=== PATIENT | female | born 2005 | race Caucasian/White ===

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

== ENCOUNTER 2023-11-14 18:11 | Emergency (ER) | payer BC ==
[2023-11-14 20:18] LABS: BASOPHILS % (AUTO) 0.4 %; EOSINOPHILS # (AUTO) 0.1 10^3/uL (0.0-0.7); EOSINOPHILS % (AUTO) 0.9 %; HCT - HEMATOCRIT 37.9 % (37.0-47.0); HGB - HEMOGLOBIN 12.8 g/dL (12.0-16.0); LYMPHOCYTES # (AUTO) 3.3 10^3/uL (1.5-3.5); LYMPHOCYTES % (AUTO) 31.3 %; MEAN CORPUSCULAR HEMOGLOBIN 29.8 pg (27.0-31.0); MEAN CORPUSCULAR HGB CONC 33.8 g/dL (32.0-36.0); MEAN CORPUSCULAR VOLUME 88.1 fL (81.0-99.0); MEAN PLATELET VOLUME 10.2 fL (7.9-10.8); MONOCYTES # (AUTO) 0.6 10^3/uL (0.0-1.0); MONOCYTES % (AUTO) 5.2 %; NEUTROPHILS # (AUTO) 6.5 10^3/uL (1.5-6.6); PLT - PLATELET COUNT 265 10^3/uL (130-450); RED CELL DISTRIBUTION WIDTH 12.6 % (12.0-15.0); WHITE BLOOD COUNT 10.5 x10^3/uL (4.8-10.8)
--- NOTE | 2023-11-14 20:20 | ED Physician Documentation ---
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 Reports increasing pain as well as numbness in the right leg which is atypical for her and is a new symptom. Has been followed by orthopedics and vascular surgery. Denies fever, chills, trauma Review of Systems Constitutional: denies: Fever Eyes: denies: Loss of vision Ears: denies: Loss of hearing Nose: denies: Rhinorrhea / runny nose Throat: denies: Dental pain / toothache Cardiac: denies: Chest pain / pressure Respiratory: denies: Dyspnea GI: denies: Abdominal Pain : denies: Dysuria Skin: denies: Rash Musculoskeletal: denies: Neck pain Neurologic: denies: Generalized weakness Psychiatric: denies: Depressed PD PAST MEDICAL HISTORY - Past Medical History Cardiovascular: None Respiratory: None Endocrine/Autoimmune: Type 1 diabetes GI: None AVIATION [place]S MATE: None : None HEENT: None Psych: None Musculoskeletal: Other Derm: None - Past Surgical History Past Surgical History: Yes - Present Medications Home Medications: Ambulatory Orders Medication Instructions Recorded Confirmed HYDROcod/ACETAM 5/325 [[place] 5/325] 1 tab PO Q6H #15 tab 11/14/23 Ketorolac [Toradol] 10 mg PO Q6H #30 tablet 11/14/23 - Allergies Allergies/Adverse Reactions: Allergies Allergy/AdvReac Type Severity Reaction Status Date / Time amoxicillin Allergy Hives Verified 11/14/23 18:27 clavulanic acid Allergy Edema Verified 11/14/23 18:27 [From Augmentin] - Social History Does the pt smoke?: No Smoking Status: Never smoker Does the pt drink ETOH?: No Does the pt have substance abuse?: No - Immunizations Immunizations are current?: Yes - POLST Patient has POLST: No PD ED PE NORMAL - General General: Alert and oriented X 3 - HEENT HEENT: Atraumatic - Neck Neck: Supple, no meningeal sign - Cardiac Cardiac: RRR - Respiratory Respiratory: No respiratory distress - Abdomen Abdomen: Normal bowel sounds - Female Female : Deferred - Rectal Rectal: Deferred - Derm Derm: Normal color - Extremities Extremities: Other (Lower extremities with significant tenderness to palpation that is outside of proportion for exam. Lower extremities otherwise appear well perfused. Previous fasciotomy scars are identified.) Results - Vitals Vitals: Vital Signs - 24 hr 11/14/23 11/14/23 18:22 20:43 Temperature 36.5 C Heart Rate 85 63 Respiratory 16 14 Rate Blood Pressure 119/61 114/65 O2 Saturation 99 97 Oxygen O2 Source Room air - Labs Labs: Laboratory Tests 11/14/23 11/14/23 11/14/23 20:13 20:13 20:13 WBC 10.5 RBC 4.30 Hgb 12.8 Hct 37.9 MCV 88.1 MCH 29.8 MCHC 33.8 RDW 12.6 Plt Count 265 MPV 10.2 Neut # (Auto) 6.5 Lymph # (Auto) 3.3 [place] # (Auto) 0.6 Eos # (Auto) 0.1 Baso # (Auto) 0.0 Absolute Nucleated RBC 0.00 Nucleated RBC % 0.0 PT 13.7 H INR 1.3 H Sodium 138 Potassium 3.7 Chloride 105 Carbon Dioxide 27 Anion Gap 6.0 BUN 16 Creatinine 0.9 Estimated GFR (MDRD) 80 L Glucose 98 Lactic Acid Calcium 9.1 Total Bilirubin 0.4 AST 10 ALT 10 Alkaline Phosphatase 49 Total Creatine Kinase 64 C-Reactive Protein < 0.5 Total Protein 6.6 Albumin 4.1 Globulin 2.5 Albumin/Globulin Ratio 1.6 Lipase 16 11/14/23 20:13 WBC RBC Hgb Hct MCV MCH MCHC RDW Plt Count MPV Neut # (Auto) Lymph # (Auto) [place] # (Auto) Eos # (Auto) Baso # (Auto) Absolute Nucleated RBC Nucleated RBC % PT INR Sodium Potassium Chloride Carbon Dioxide Anion Gap BUN Creatinine Estimated GFR (MDRD) Glucose Lactic Acid < 0.2 L Calcium Total Bilirubin AST ALT Alkaline Phosphatase Total Creatine Kinase C-Reactive Protein Total Protein Albumin Globulin Albumin/Globulin Ratio Lipase PD Medical Decision Making - ED course Complexity details: reviewed results, re-evaluated patient, considered differential, d/w patient, d/w family, d/w advisor consultant ED course: 18-year-old female presents to the emergency department with bilateral lower extremity pain. 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 Afebrile, he medically stable on arrival to the emergency department. Tenderness to the lower extremity with passive stretch but easily palpable pulses with normal capillary refill. She did report some paresthesia to the right lower extremity but stated that this had resolved at time of evaluation in the emergency department. Was offered medication for pain control but declined any narcotic pain medicine and instead received Toradol. Labs obtained including CK were all within normal limits are generally nonactionable. [place] for evaluation of compartment pressures is not available at this facility at this time. Discussed with orthopedic surgery at the [facility] who upon review of the case believe that this is an exacerbation of her more chronic problem. They would like me to discharge her for follow-up both with their service tomorrow as well with vascular service for whom she is following. Patient and patient's mother is present at bedside is agreeable for this plan at this time. Explicit return precautions given for any new or worsening symptoms. Departure - Departure Disposition: 01 Home, Self Care Clinical Impression: Leg pain Qualifiers: Laterality: bilateral Qualified Code(s): M79.604 - Pain in right leg; M79.605 - Pain in left leg Prescriptions: HYDROcod/ACET 5/325 Prepack 4 [[place] 5/325 Prepack 4] 1 bottle PO Q6HR #1 each HYDROcod/ACETAM 5/325 [[place] 5/325] 1 tab PO Q6H #15 tab Ketorolac [Toradol] 10 mg PO Q6H #30 tablet Comments: Thank you for allowing us to care for you today at [facility]. Your lab work here in the emergency department today is very reassuring. I discussed your care directly with the orthopedic service at the [facility]. Their recommendation is that you follow-up with them in their clinic at the earliest opportunity as well as continue to follow with vascular surgery. Importance of medication to take for pain control. Please be aware that 1 of these medicines, hydrocodone-acetaminophen is both sedating and habit- forming and should not be used if you are operating a motor vehicle, using of the machinery or you are the sole glass cutting machine feeder of young children. Please do follow-up with orthopedics at the [facility], vascular surgery and your primary care doctor as soon as possible concerning your ER evaluation. If it anytime you develop any new or worsening symptoms please not hesitate to return. Forms: PCP List, Activity restrictions
[2023-11-14 20:25] LABS: INR 1.3 (0.8-1.2); PT - PROTHROMBIN TIME 13.7 secs (9.9-12.6)
[2023-11-14] MEDS: KETOROLAC 15 MG/ML VIAL IVP PRN (20:38)
[2023-11-14 20:43] LABS: ALBUMIN 4.1 g/dL (3.2-5.5); ALBUMIN/GLOBULIN RATIO 1.6 (1.0-2.2); ALKALINE PHOSPHATASE 49 IU/L (42-121); ALT ALANINE AMINOTRANSFERASE 10 IU/L (10-60); AST ASPARTATE AMINOTRANSFERASE 10 IU/L (10-42); BILIRUBIN,TOTAL 0.4 mg/dL (0.2-1.0); BUN - BLOOD UREA NITROGEN 16 mg/dL (6-20); CALCIUM 9.1 mg/dL (8.5-10.3); CARBON DIOXIDE - CO2 27 mmol/L (21-32); CHLORIDE 105 mmol/L (101-111); CK- CREATINE KINASE 64 IU/L (30-223); CREATININE 0.9 mg/dL (0.6-1.3); CRP - C-REACTIVE PROTEIN < 0.5 mg/dL (<0.5); GFR - MDRD 80 (>89); GLUCOSE 98 mg/dL (74-104); LIPASE 16 U/L (11-82); POTASSIUM 3.7 mmol/L (3.5-4.5); SODIUM 138 mmol/L (135-145); TOTAL PROTEIN 6.6 g/dL (6.4-8.9)
[2023-11-14 21:44] VITALS: BP 127/67; O2SAT 100
== END 2023-11-14 21:40 | disposition home or self-care (01) ==
LOC: ED 18:11
DX: M79.604 Pain in right leg (principal); M79.605 Pain in left leg; E10.9 Type 1 diabetes mellitus without complications; Z79.4 Long term (current) use of insulin
CPT/HCPCS: 36415; 80053; 82550; 83605; 83690; 85025; 85610; 86140; 96374; 99284

== ENCOUNTER 2024-01-22 14:44 | Emergency (ER) | payer BC ==
--- NOTE | 2024-01-22 15:08 | ED Physician Documentation ---
PD HPI OPHTHO - Stated complaint Stated Complaint: DOG SCRATCH/FACIAL - Chief complaint Chief Complaint: Heent - Additional information Additional information: 18-year-old female presents emergency department for injury to her right eye. Patient says that her dog got excited and jumped on her and dogs clock slightly scratched right eye. She is having significant pain and difficulty opening her eye because of the sensitivity and pain. Said that there is a scant amount of blood that immediately resolved. Updated tetanus shot. 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 : None HEENT: None Psych: None Musculoskeletal: Other Derm: None - Past Surgical History Past Surgical History: Yes - Present Medications Home Medications: Ambulatory Orders Medication Instructions Recorded Confirmed HYDROcod/ACETAM 5/325 [[place] 5/325] 1 tab PO Q6H #15 tab 11/14/23 Ketorolac [Toradol] 10 mg PO Q6H #30 tablet 11/14/23 Erythromycin Base [Erythromycin 1 applic OP QID 5 Days #3.5 gm 01/22/24 Ophthalmic Ointment] - Allergies Allergies/Adverse Reactions: Allergies Allergy/AdvReac Type Severity Reaction Status Date / Time amoxicillin Allergy Hives Verified 01/22/24 14:47 clavulanic acid Allergy Edema Verified 01/22/24 14:47 [From Augmentin] - Social History Does the pt smoke?: No Smoking Status: Never smoker Does the pt drink ETOH?: No Does the pt have substance abuse?: No - Immunizations Immunizations are current?: Yes - POLST Patient has POLST: No PD ED PE NORMAL - Vitals Vital signs reviewed: Yes - General General: Alert and oriented X 3, Well developed/nourished, Other PD ED PE EXPANDED - Eyes Eyes: Visual acuity - see nn, PERRL, Normal accommodation, EOMI, Right eye, Eyelid injury, Eyelid swelling, Eyelid erythema, No eyelid FB (everted), Normal corneas, Corneal abrasion, Fluorescein uptake (right IOP: 20). No: Normal eyelids (bottom internal eyelid laceration) Results - Vitals Vitals: Vital Signs - 24 hr 01/22/24 14:48 Temperature 36.8 C Heart Rate 60 Respiratory 16 Rate Blood Pressure 136/68 H O2 Saturation 100 Oxygen O2 Source Room air PD Medical Decision Making - ED course ED course: 18-year-old female presents the emergency department for right eye scratch caused from dog paw. Upon further examination there is a small 0.5 centimeter laceration to the bottom inner eyelid. Is very superficial it does not appear that it needs to have any sort of repair. Fluorescein exam was also complete and she does appear to have a corneal abrasion. See nursing note for visual acuity exam. She is given erythromycin ointment here in the emergency department and was told to follow-up with ophthalmology in a couple days if no improvement of symptoms and to avoid all contact with the right eye. She is taught signs symptoms of infection return precautions and a prescription of erythromycin ophthalmologic ointment was sent to her preferred pharmacy. Departure - Departure Disposition: 01 Home, Self Care Clinical Impression: Eyelid laceration Qualifiers: Encounter type: initial encounter Laterality: right Qualified Code(s): S01.111A - Laceration without foreign body of right eyelid and periocular area, initial encounter Corneal abrasion Qualifiers: Encounter type: initial encounter Laterality: right Qualified Code(s): S05.01XA - Injury of conjunctiva and corneal abrasion without foreign body, right eye, initial encounter Instructions: ED Eye Injury Corneal Abrasion Prescriptions: Erythromycin Base [Erythromycin Ophthalmic Ointment] 1 applic OP QID 5 Days #3.5 gm Comments: You have a corneal abrasion and right eyelid laceration on the bottom of your eye. This should heal quickly If you are is not experiencing pain after 3 days the need to follow-up with an chief innovation officer soon as possible for further evaluation. I have sent your prescription of erythromycin to [facility] make sure you pick this up you can apply this up to 4 times a day you can take Tylenol ibuprofen for pain and discomfort. Forms: PCP List Discharge Date/Time: 01/22/24 15:31
[2024-01-22] MEDS: ERYTHROMYCIN OPHTH OINT 1 GM TUBE RIGHTEYE STA (15:19)
[2024-01-22 15:23] VITALS: BP 136/68; O2SAT 100
== END 2024-01-22 15:31 | disposition home or self-care (01) ==
LOC: ED 14:44
DX: S05.01XA Injury of conjunctiva and corneal abrasion without foreign body, right eye, initial encounter (principal); S01.111A Laceration without foreign body of right eyelid and periocular area, initial encounter; W54.1XXA Struck by dog, initial encounter
CPT/HCPCS: 99282; 99283; J3490